=== PATIENT | female | born 1950 ===

== ENCOUNTER 2017-09-03 14:35 | Emergency (ER) | payer MEDICARE ==
[2017-09-03 14:35] VITALS: BMI 33.3
[2017-09-03 14:56] VITALS: RESP 16; TEMP 98; O2SAT 100
[2017-09-03 16:38] LABS: BASO # 0.1 K/uL (0.0-0.2); BASO % 0.6 % (0.0-2.0); EOS # 0.1 K/uL (0.0-0.7); EOS % 0.8 % (0.0-4.0); HEMOGLOBIN 14.7 g/dL (12.0-16.0); LYMPH # 3.5 K/uL (1.0-4.3); LYMPH % 37.3 % (20.0-40.0); MEAN CORPUSCULAR HEMOGLOBIN 31.5 pg (27.0-31.0); MEAN CORPUSCULAR HGB CONC 34.2 g/dL (33.0-37.0); MEAN PLATELET VOLUME 7.4 fl (7.2-11.7); MONO # 0.6 K/uL (0.0-0.8); MONO % 5.9 % (0.0-10.0); NEUT # 5.2 K/uL (1.8-7.0); NEUT % 55.4 % (50.0-75.0); NRBC % 0.1 % (0.0-0.0); RBC 4.68 Mil/uL (3.80-5.20); RED CELL DISTRIBUTION WIDTH 13.6 % (11.5-14.5); WHITE BLOOD COUNT 9.4 K/uL (4.8-10.8)
[2017-09-03] MEDS ORDERED: Iohexol 240 (50 ml) PO ONE (16:38)
[2017-09-03 16:53] LABS: BLOOD UREA NITROGEN 18 mg/dl (7-17); GFR AFRICAN-AMERICAN > 60; GFR NON-AFRICAN AMERICAN > 60
[2017-09-03] MEDS ORDERED: Iohexol 240 (50 ml) ONE (17:37)
[2017-09-03 18:03] LABS: SQUAMOUS EPITHIAL < 1 /hpf (0-5); URINE BILIRUBIN NEGATIVE (NEGATIVE); URINE BLOOD MODERATE (NEGATIVE); URINE CLARITY TURBID (Clear); URINE COLOR YELLOW (YELLOW); URINE GLUCOSE (UA) NEG (Normal); URINE LEUKOCYTE ESTERASE MOD Leu/uL (Negative); URINE PROTEIN 30 mg/dL (NEGATIVE); URINE UROBILINOGEN 0.2-1.0 mg/dL (0.2-1.0)
[2017-09-03] MEDS ORDERED: cefTRIAXone (Rocephin) 1 gm Inj ONE (18:17)
--- NOTE | 2017-09-03 18:29 | ED PDOC ---
HPI: Abdomen Time Seen by Provider: 09/03/17 16:00 Chief Complaint (Nursing): Abdominal Pain Chief Complaint (Provider): Abdominal Pain History Per: Patient History/Exam Limitations: no limitations Onset/Duration Of Symptoms: Days Current Symptoms Are (Timing): Constant Quality Of Discomfort: "Pain" Associated Symptoms: denies: Fever, Vomiting, Diarrhea, Urinary Symptoms Additional Complaint(s): 67 year old female with a history of hypertension presents to the ED complaining of constant abdominal pain onset 2 days ago. Patient feels constipated but can pass gas. States she does not urinate normally because she wears a bag urine collection bag. Denies vomiting, diarrhea, fever, or urinary problems. Has no other complains in ED. PMD: James Serrano Past Medical History Reviewed: Historical Data, Nursing Documentation, Vital Signs Vital Signs: Last Vital Signs Temp 98 F 09/03/17 14:54 Pulse 70 09/03/17 23:26 Resp 16 09/03/17 23:26 BP 124/72 09/03/17 23:26 Pulse Ox 100 09/04/17 04:37 - Medical History PMH: HTN, Malignancy (colon CA) - Surgical History Surgical History: Appendectomy Other surgeries: ileal conduit urinary diversion, bladder cancer resection - Family History Family History: States: Unknown Family Hx - Immunization History Hx Tetanus Toxoid Vaccination: No Hx Influenza Vaccination: Yes Hx Pneumococcal Vaccination: Yes - Home Medications Home Medications: Ambulatory Orders Medication Instructions Recorded Atenolol 100 mg PO DAILY 12/26/12 Lisinopril/Hydrochlorothiazide 1 tab PO DAILY 11/03/13 [Lisinopril-Hydrochlorothiazide 25 mg-20 mg] Atenolol [Atenolol] 1 tab PO DAILY 05/27/14 Lisinopril/Hydrochlorothiazide 1 tab PO DAILY 05/27/14 [Lisinopril-Hydrochlorothiazide 25 mg-20 mg] Cyclobenzaprine HCl [Flexeril] 1 tab PO TID PRN #25 tab 06/24/14 Naproxen [Naprosyn] 375 mg PO TIDPC #20 tab 06/24/14 Ciprofloxacin HCl [Cipro] 500 mg PO BID #19 tab 11/01/14 Meclizine HCl [Antivert] 25 mg PO TID #15 tablet 11/29/15 Naproxen [Naprosyn] 500 mg PO Q12H #20 tab 11/29/15 Sulfamethoxazole/Trimethoprim 1 tab PO BID #20 tab 11/29/15 [Bactrim DS 800 mg-160 mg] Nitrofurantoin Macrocrystals 100 mg PO BID #14 cap 09/03/17 [Macrobid] - Allergies Allergies/Adverse Reactions: Allergies Allergy/AdvReac Type Severity Reaction Status Date / Time No Known Allergies Allergy Verified 05/27/14 08:41 Review of Systems ROS Statement: Except As Marked, All Systems Reviewed And Found Negative Constitutional: Negative for: Fever Gastrointestinal: Positive for: Abdominal Pain. Negative for: Vomiting, Diarrhea Genitourinary Female: Negative for: Frequency Physical Exam - Reviewed Nursing Documentation Reviewed: Yes Vital Signs Reviewed: Yes - Physical Exam Appears: Positive for: Well, Non-toxic, No Acute Distress Head Exam: Positive for: ATRAUMATIC, NORMAL INSPECTION, NORMOCEPHALIC Skin: Positive for: Normal Color, Warm, Dry Eye Exam: Positive for: EOMI, Normal appearance, PERRL ENT: Positive for: Normal ENT Inspection Neck: Positive for: Normal, Painless ROM, Supple. Negative for: Decreased ROM Cardiovascular/Chest: Positive for: Regular Rate, Rhythm. Negative for: Murmur Respiratory: Positive for: Normal Breath Sounds. Negative for: Decreased Breath Sounds, Accessory Muscle Use, Respiratory Distress Gastrointestinal/Abdominal: Positive for: Soft, Tenderness, Other (wearing ostomy bag, scars on abdomen) Back: Positive for: Normal Inspection. Negative for: L CVA Tenderness, R CVA Tenderness Extremity: Positive for: Normal ROM. Negative for: Tenderness, Pedal Edema, Deformity Neurologic/Psych: Positive for: Alert, Oriented (x3). Negative for: Motor/ Sensory Deficits - Laboratory Results Result Diagrams: 09/03/17 16:34 09/03/17 16:34 - ECG O2 Sat by Pulse Oximetry: 100 (RA) Pulse Ox Interpretation: Normal Medical Decision Making Medical Decision Making: Time: 1606 Initial Impression: abdominal pain Differential Diagnosis includes but is not limited to: UTI, small bowel obstruction, other conditions considered but are not listed Initial Plan: --Abdomen & Pelvis CT --BMP --Dipstick --CBC w/ Differential --Omnipaque 240 (50ml) --Rocephin 1gm --Urine Culture --Urinalysis --Reevaluation Time: 1900 Patient signed out to Dr. Linton pending reevaluation. Scribe Attestation: Documented by Gilbert Jimenez, acting as a scribe for Beni Hunter MD Provider Scribe Attestation: All medical record entries made by the Scribe were at my direction and personally dictated by me. I have reviewed the chart and agree that the record accurately reflects my personal performance of the history, physical exam, medical decision making, and the department course for this patient. I have also personally directed, reviewed, and agree with the discharge instructions and disposition. Disposition - Clinical Impression Clinical Impression: UTI (lower urinary tract infection) - Patient ED Disposition Is Patient to be Admitted: Transfer of Care Counseled Patient/Family Regarding: Studies Performed, Diagnosis - Disposition Disposition: Transfer of Care Disposition Time: 19:00 Condition: STABLE Prescriptions: Nitrofurantoin Macrocrystals [Macrobid] 100 mg PO BID #14 cap Instructions: Urinary Tract Infections in Adults Patient Signed Over To: Asa Linton (reevaluation)
[2017-09-03] MEDS ORDERED: Iohexol 300 100 ML IJ ONE ×2 (19:07→20:38)
[2017-09-03] MEDS ORDERED: Sodium Chloride 0.9% 50 ML IV ONE ×2 (19:07→20:38)
--- NOTE | 2017-09-03 19:36 | ED PDOC ---
- Laboratory Results Result Diagrams: 09/03/17 16:34 09/03/17 16:34 - ECG O2 Sat by Pulse Oximetry: 100 (RA) Pulse Ox Interpretation: Normal Medical Decision Making Medical Decision Making: Time: 1899 Patient signed out to me by Dr. Hunter pending reevaluation. Time: 22:43 CT Abdominal and Pelvic with IV Contrast FINDINGS: The liver, spleen and pancreas normal. A gallstone is present. The previously seen right perinephric stranding/fluid and right hydronephrosis has resolved. The patient is status post surgical removal of the urinary bladder with ileal conduit. Both ureters are traced into the ileal conduit. There is a loop of small bowel herniating just medial to the ileal conduit similar to prior study. There is mild wall thickening and indistinctness new from prior study suggesting mild infectious/inflammatory process. There is no change in caliber to suggest obstruction. Sutures are present within the colon. There is distention of the bowel in the area of anastomosis similar to prior. There is fluid within the colon, a finding that can be associated with diarrhea/enteritis. Appendectomy. Hysterectomy. IMPRESSION: Status post cystectomy with ileal conduit. Resolution of previously seen right hydronephrosis and right perinephric stranding. Slight wall thickening and indistinctness of a parastomal small bowel loop suggestive of mild infectious/inflammatory process. Colonic fluid discussed above. Cholelithiasis without evidence of cholecystitis. Patient feels improved. Upon provider evaluation patient is medically stable, and requires no further treatment in the ED at this time. Patient will be discharged with Rx for Macrobid. Counseling was provided and all questions were answered regarding diagnosis and need for follow up with PCP in 2 days. There is agreement to discharge plan. Return if symptoms persist or worsen. Scribe Attestation: Documented by Gilbert Jimenez and Mario Valera, acting as scribes for Asa Linton MD Provider Scribe Attestation: All medical record entries made by the Scribe were at my direction and personally dictated by me. I have reviewed the chart and agree that the record accurately reflects my personal performance of the history, physical exam, medical decision making, and the department course for this patient. I have also personally directed, reviewed, and agree with the discharge instructions and disposition. Disposition - Clinical Impression Clinical Impression: UTI (lower urinary tract infection) - POA Present On Arrival: None - Disposition Disposition: Routine/Home Disposition Time: 22:45 Condition: STABLE Prescriptions: Nitrofurantoin Macrocrystals [Macrobid] 100 mg PO BID #14 cap Instructions: Urinary Tract Infections in Adults Forms: [facility] ([place]rian)
--- NOTE | 2017-09-03 22:44 | CT ---
EXAM: CT Abdomen and Pelvis With Intravenous Contrast EXAM DATE/TIME: 09/03/2017 4:38 PM CLINICAL HISTORY: 67 years old, female; Pain; Abdominal pain; Generalized; Prior surgery; Surgery date: 6+ months; Surgery type: Appendectomy. Hysterectomy. Bladder; Patient HX: HX of bladder ca. ; Additional info: Abdominal pain HX bladder ca ileal conduit. Sent phy. Doc. TECHNIQUE: Axial computed tomography images of the abdomen and pelvis with intravenous contrast. All CT scans at this facility use one or more dose reduction techniques, viz.: automated exposure control; ma/kV adjustment per patient size (including targeted exams where dose is matched to indication; i.e. head); or iterative reconstruction technique. Coronal and sagittal reformatted images were created and reviewed. CONTRAST: 130 mL of [id number] administered intravenously. COMPARISON: CT ABD AND PELV W/CONTRAST 2012-11-02 08:20 FINDINGS: The liver, spleen and pancreas normal. A gallstone is present. The previously seen right perinephric stranding/fluid and right hydronephrosis has resolved. The patient is status post surgical removal of the urinary bladder with ileal conduit. Both ureters are traced into the ileal conduit. There is a loop of small bowel herniating just medial to the ileal conduit similar to prior study. There is mild wall thickening and indistinctness new from prior study suggesting mild infectious/inflammatory process. There is no change in caliber to suggest obstruction. Sutures are present within the colon. There is distention of the bowel in the area of anastomosis similar to prior. There is fluid within the colon, a finding that can be associated with diarrhea/enteritis. Appendectomy. Hysterectomy. IMPRESSION: Status post cystectomy with ileal conduit. Resolution of previously seen right hydronephrosis and right perinephric stranding. Slight wall thickening and indistinctness of a parastomal small bowel loop suggestive of mild infectious/inflammatory process. Colonic fluid discussed above. Cholelithiasis without evidence of cholecystitis.
[2017-09-03 23:26] VITALS: BP 124/72; PULSE 70
== END 2017-09-03 23:27 | disposition home or self-care (01) ==
LOC: H.ER 14:35
DX: N39.0 Urinary tract infection, site not specified (principal); I10 Essential (primary) hypertension; Z85.51 Personal history of malignant neoplasm of bladder; Z90.6 Acquired absence of other parts of urinary tract; Z90.710 Acquired absence of both cervix and uterus; Z85.038 Personal history of other malignant neoplasm of large intestine
CPT/HCPCS: 74177; 80048; 81003; 85025; 87086; 87181; 96374; 99284; J0696; Q9966; Q9967